=== PATIENT | female | born 1955 | race African-American/Black ===

== ENCOUNTER 2023-12-31 09:48 | Emergency (ER) | payer BC, MEDICAID, MEDICARE ==
[~2023-12-31] VITALS: Ht 162.6 cm; Wt 55.0 kg
[2023-12-31] MEDS ORDERED: PROZAC (10:01)
[2023-12-31 10:02] VITALS: O2SAT 99
[2023-12-31 13:25] LABS: BASOPHILS % 2.3 % (0.0-2.0); DIFFERENTIAL COMMENT 0; EOSINOPHILS % 2.9 % (0.0-5.0); HEMATOCRIT. 28.6 % (36.0-48.0); HEMOGLOBIN. 9.4 g/dL (12.0-16.0); LYMPHOCYTES % 28.5 % (20.0-50.0); MEAN CORPUSCULAR HEMOGLOBIN 33.9 pg (28.0-32.0); MEAN CORPUSCULAR HGB CONC 32.9 g/dL (31.0-37.0); MEAN PLATELET VOLUME 7.8 fl (7.4-10.4); MONOCYTES % 8.7 % (2.0-8.0); NEUTROPHILS % 57.6 % (40.0-76.0); PLATELET 323 x1000/uL (130-400); RED BLOOD CELL COUNT 2.78 mill/uL (4.2-5.4); RED CELL DISTRIBUTION WIDTH 14.2 % (11.6-14.6); WHITE BLOOD COUNT 4.5 x1000/uL (4.5-11.0)
[2023-12-31 13:46] LABS: ALANINE AMINOTRANSFERASE 10 IU/L (10-49); ALBUMIN 3.1 g/dL (3.2-4.8); ASPARTATE AMINOTRANSFERASE 16 IU/L (<34); BILIRUBIN TOTAL 0.2 mg/dL (0.1-1.0); CALCIUM 8.8 mg/dL (8.7-10.4); CARBON DIOXIDE 23 mEq/L (21-32); CHLORIDE 110 mEq/L (98-107); CREATININE 0.5 mg/dL (0.6-1.0); GLUCOSE 74 mg/dL (70-105); POTASSIUM 3.9 mEq/L (3.5-5.1); PROTEIN TOTAL 5.9 g/dL (6.0-8.3); SODIUM 139 mEq/L (136-145); UREA NITROGEN BLOOD 10 mg/dL (9-23)
[2024-01-01 07:54] VITALS: BP 118/64; PULSE 78; RESP 18; TEMP 97.6
== END 2024-01-01 08:14 | disposition home or self-care (01) ==
LOC: ER 09:48
DX: A41.9 Sepsis, unspecified organism (principal); R53.1 Weakness; D61.818 Other pancytopenia; J44.1 Chronic obstructive pulmonary disease with (acute) exacerbation; L03.116 Cellulitis of left lower limb; F10.20 Alcohol dependence, uncomplicated; I10 Essential (primary) hypertension; Z88.0 Allergy status to penicillin; Z88.8 Allergy status to other drugs, medicaments and biological substances; Y90.9 Presence of alcohol in blood, level not specified
CPT/HCPCS: 36415; 71045; 80053; 85025; 99285